=== PATIENT | male | born 1930 | race Caucasian/White ===

== ENCOUNTER → 2016-11-19 | Outpatient (REF) ==
[~2016-11-19] MED LIST: ASPIRIN E.C. 8181 MG PO; CARDURA1 MG PO; DARVOCET N 101 UDTAB PO; FOLGARD RX 1 MG1 TAB PO; GLUCOSAMINE & C1 CAP PO; INDERAL PO; LOW DOSE ASPIRI81 MG PO; MEVACOR40 MG PO; PROSCAR 5MG5 MG PO; PROSCAR5 MG PO
== END ==
LOC: ZLAB.WCH 15:35
DX: Z01.89 Encounter for other specified special examinations (principal)

== ENCOUNTER → 2016-12-10 | Outpatient (REF) | LOC: ZLAB.WCH 15:54 | DX: Z01.89 Encounter for other specified special examinations (principal) ==

== ENCOUNTER → 2016-12-31 | Outpatient (REF) | LOC: ZLAB.WCH 15:52 | DX: Z01.89 Encounter for other specified special examinations (principal) ==

== ENCOUNTER → 2017-01-28 | Outpatient (REF) | LOC: ZLAB.WCH 14:51 | DX: Z01.89 Encounter for other specified special examinations (principal) ==

== ENCOUNTER → 2017-02-25 | Outpatient (REF) | LOC: ZLAB.WCH 15:54 | DX: Z01.89 Encounter for other specified special examinations (principal) ==

== ENCOUNTER → 2017-03-25 | Outpatient (REF) | LOC: ZLAB.WCH 18:19 | DX: Z01.89 Encounter for other specified special examinations (principal) ==

== ENCOUNTER → 2017-04-22 | Outpatient (REF) | LOC: ZLAB.WCH 10:58 | DX: Z01.89 Encounter for other specified special examinations (principal) ==

== ENCOUNTER → 2017-05-20 | Outpatient (REF) | LOC: ZLAB.WCH 18:04 | DX: Z01.89 Encounter for other specified special examinations (principal) ==

== ENCOUNTER → 2017-06-17 | Outpatient (REF) | LOC: ZLAB.WCH 17:58 | DX: Z01.89 Encounter for other specified special examinations (principal) ==

== ENCOUNTER → 2017-07-19 | Outpatient (REF) ==
[~2017-07-19] MED LIST changes: +ALDACTONE 100M100 MG PO; +ATROVENT I0.2 MG/1 M IH; +COREG 3.123.125 MG/T PO; +INDERAL 20MG20 MG PO; -INDERAL PO; +LASIX 20MG TABL20 MG PO; +SYNTHROID0.088 MG/T PO; +XALATAN EYE DROPS IO; +ZANTAC 300300 MG PO
== END ==
LOC: ZLAB.WCH 18:06
DX: Z01.89 Encounter for other specified special examinations (principal)

== ENCOUNTER → 2017-08-23 | Outpatient (REF) ==
[~2017-08-23] MED LIST changes: -ALDACTONE 100M100 MG PO; -ATROVENT I0.2 MG/1 M IH; -COREG 3.123.125 MG/T PO; -INDERAL 20MG20 MG PO; +INDERAL PO; -LASIX 20MG TABL20 MG PO; -SYNTHROID0.088 MG/T PO; -XALATAN EYE DROPS IO; -ZANTAC 300300 MG PO
== END ==
LOC: ZLAB.WCH 14:54
DX: Z01.89 Encounter for other specified special examinations (principal)

== ENCOUNTER → 2017-09-20 | Outpatient (REF) | LOC: ZLAB.WCH 18:17 | DX: Z01.89 Encounter for other specified special examinations (principal) ==

== ENCOUNTER → 2017-09-20 | Outpatient (REF) | LOC: ZLAB.WCH 18:12 | DX: Z01.89 Encounter for other specified special examinations (principal) ==

== ENCOUNTER → 2017-11-03 | Outpatient (REF) | LOC: ZLAB.WCH 18:23 | DX: Z01.89 Encounter for other specified special examinations (principal) ==

== ENCOUNTER → 2017-11-10 | Outpatient (REF) | LOC: ZLAB.WCH 18:50 | DX: Z01.89 Encounter for other specified special examinations (principal) ==

== ENCOUNTER → 2017-11-16 | Outpatient (CLI) | payer MEDICARE, OTHER | LOC: COL.VAS 14:57 | DX: I35.1 Nonrheumatic aortic (valve) insufficiency (principal); R18.8 Other ascites ==

== ENCOUNTER → 2017-11-29 | Outpatient (REF) | LOC: ZLAB.WCH 18:10 | DX: Z01.89 Encounter for other specified special examinations (principal) ==

== ENCOUNTER → 2017-12-16 | Outpatient (REF) | LOC: ZLAB.WCH 18:59 | DX: Z01.89 Encounter for other specified special examinations (principal) ==

== ENCOUNTER → 2017-12-16 | Outpatient (REF) | LOC: COL.CARD 10:57 | DX: Z01.89 Encounter for other specified special examinations (principal) ==

== ENCOUNTER → 2017-12-30 | Outpatient (REF) | LOC: ZLAB.WCH 17:35 | DX: Z01.89 Encounter for other specified special examinations (principal) ==

== ENCOUNTER → 2018-01-10 | Outpatient (REF) | LOC: ZLAB.WCH 18:01 | DX: Z01.89 Encounter for other specified special examinations (principal) ==

== ENCOUNTER → 2018-01-22 | Outpatient (REF) | LOC: ZLAB.WCH 11:17 | DX: Z01.89 Encounter for other specified special examinations (principal) ==

== ENCOUNTER → 2018-02-01 | Outpatient (REF) | LOC: ZLAB.WCH 08:53 | DX: Z01.89 Encounter for other specified special examinations (principal) ==

== ENCOUNTER → 2018-03-03 | Outpatient (REF) | LOC: ZLAB.WCH 08:30 | DX: Z01.89 Encounter for other specified special examinations (principal) ==

== ENCOUNTER → 2018-03-29 | Outpatient (CLI) | payer MEDICARE, OTHER | LOC: COL.VAS 13:39 | DX: R60.0 Localized edema (principal) ==

== ENCOUNTER → 2018-05-20 | Outpatient (REF) ==
[2018-05-20 16:38] LABS: THYROID STIMULATING HORMONE 2.86 uIU/mL (0.465-4.680)
== END ==
LOC: ZLAB.WCH 15:43
PROVIDERS: Family Medicine
DX: Z01.89 Encounter for other specified special examinations (principal)

== ENCOUNTER → 2018-06-07 | Outpatient (REF) ==
[2018-06-07 08:45] LABS: IRON,SERUM 11 ug/dL (35-150)
[2018-06-07 08:55] LABS: TOTAL IRON BINDING CAPACITY 266 ug/dL (261-462)
[2018-06-07 09:22] LABS: FERRITIN 64 ng/mL (18-464)
== END ==
LOC: ZLAB.WCH 08:32
PROVIDERS: Internal Medicine
DX: Z01.89 Encounter for other specified special examinations (principal)

== ENCOUNTER → 2018-11-10 | Outpatient (REF) ==
[~2018-11-10] MED LIST changes: +ALDACTONE 100M100 MG PO; +ATROVENT I0.2 MG/1 M IH; +COREG 3.123.125 MG/T PO; +INDERAL 20MG20 MG PO; -INDERAL PO; +LASIX 20MG TABL20 MG PO; +SYNTHROID0.088 MG/T PO; +XALATAN EYE DROPS IO; +ZANTAC 300300 MG PO
--- NOTE | 2018-11-10 15:14 | NUR ---
Initial visit; Patient and his daughter thanked [employer] for looking in on him and offering encouragement and comfort and letting patient know spiritual care is available at [address].
== END ==
LOC: ZLAB.WCH 09:35
DX: Z01.89 Encounter for other specified special examinations (principal)